=== PATIENT | female | born 1985 | race Two or more races ===

== ENCOUNTER → 2024-12-11 | Outpatient (CLI) | payer OTHER, SELFPAY ==
--- NOTE | 2024-12-11 08:45 | XR_ITS ---
Examination: Breast ultrasound, unilateral, left complete Date and time of exam: December 11, 2024 0916 hours INDICATIONS: Palpable lump and tenderness in the 5:00 position left breast note is beginning one month ago, family history breast cancer Technique: Real-time fontana scale ultrasonographic imaging performed left breast including all 4 quadrants as well as nipple retroareolar and axillary region. Findings: 7:00 hyperechoic nodule circumscribed 6 x 6 mm IMPRESSION: BI-RADS Category 0: Incomplete: Need additional imaging evaluation Recommend follow-up diagnostic mammography Recommend 6 month left breast sonogram follow-up
--- NOTE | 2024-12-11 09:00 | XR_ITS ---
Examination: Knee, left , 3 views Technique: Knee AP, lateral, oblique 3 views Date and time of exam: December 11, 2024 0931 hours INDICATIONS: Left knee pain beginning 3 years ago. FINDINGS: Mild narrowing medial joint space Minimal spur formation posterior surface patella No fracture or dislocation IMPRESSION: Mild osteoarthritis
--- NOTE | 2024-12-11 09:00 | XR_ITS ---
Exam: elbow bilateral, 6 views Technique: Elbow AP, oblique lateral each elbow total 6 views Exam date and time: December 11, 2024 0931 hours INDICATIONS: Bilateral elbow pain beginning 2 years ago. FINDINGS: No fracture or dislocation involving either elbow No arthritic change No elbow effusions IMPRESSION: No fractures or significant arthritic change.
[2024-12-11 10:43] LABS: Glucose Estimated Average 108 mg/dL (80-131); Hemoglobin A1C 5.4 % Hgb (4.8-6.0)
[2024-12-11 15:40] LABS: RA Screen Negative (Negative)
== END | disposition home or self-care (01) ==
LOC: CDIM 08:44 → COPL 09:40
PROVIDERS: PCP Registered Nurse; Referring Provider Registered Nurse; Visit Provider Registered Nurse
DX: M17.12 Unilateral primary osteoarthritis, left knee (principal); N63.20 Unspecified lump in the left breast, unspecified quadrant; M25.521 Pain in right elbow; M25.522 Pain in left elbow; R73.03 Prediabetes; M79.10 Myalgia, unspecified site
CPT/HCPCS: 36415; 73080; 73562; 76641; 83036; 86038; 86430

== ENCOUNTER → 2025-01-04 | Outpatient (CLI) | payer OTHER, SELFPAY ==
--- NOTE | 2025-01-04 14:45 | XR_ITS ---
Examination: Diagnostic digital mammography, unilateral, left Computer aided detection 3-D breast Tomosynthesis, unilateral Date and time of exam: December 27, 2024 1418 hours INDICATIONS: Left breast pain 5:00 position 2 months Technique: Nonmagnified MLO, CC views of the left breast have been obtained, reconstructed from 3-D Tomosynthesis images. R2 computer aided detection program utilized for evaluation of suspicious masses and/or abnormal calcifications. 3-D Tomosynthesis images obtained. Findings: The breast is heterogeneously dense, which may obscure small masses Spot compression views demonstrate focal asymmetry 10 mm upper left breast MLO view, 4.2 cm from the nipple Impression: BI-RADS category 3: Probably benign findings Recommend 1 additional 6 month left mammogram follow-up to document stability of asymmetry described above
== END | disposition home or self-care (01) ==
LOC: CDIM 14:09
PROVIDERS: Referring Provider Registered Nurse; Visit Provider Registered Nurse
DX: R92.332 Mammographic heterogeneous density, left breast (principal); N64.89 Other specified disorders of breast
CPT/HCPCS: 77061; 77065; G0279